=== PATIENT | female | born 1995 | race Two or more races ===

== ENCOUNTER 2016-09-19 20:05 | Emergency (ER) | payer MEDICAID ==
[~2016-09-19] VITALS: Ht 165.1 cm; Wt 68.3 kg
[2016-09-19 20:07] VITALS: BP 118/74
[2016-09-19] MEDS ORDERED: ONDANSETRON ODT 4 MG ONE (20:44)
[2016-09-19] MEDS ORDERED: MAALOX/HYOSCYAMINE/LIDOCAINE 45 ML BOTTLE ONE (20:44)
[2016-09-19] MEDS ORDERED: ONDANSETRON ODT 4 MG PO ONE (21:00)
[2016-09-19] MEDS ORDERED: MAALOX/HYOSCYAMINE/LIDOCAINE 45 ML BOTTLE PO ONE (21:00)
[2016-09-19 21:04] LABS: ASPARTATE AMINO TRANSFERASE 5 U/L (15-37); BLOOD UREA NITROGEN 6 mg/dL (7-18)
== END 2016-09-19 22:18 | disposition home or self-care (01) ==
LOC: ED 20:26
DX: O99.611 Diseases of the digestive system complicating pregnancy, first trimester (principal); K29.00 Acute gastritis without bleeding; R10.13 Epigastric pain; Z3A.01 Less than 8 weeks gestation of pregnancy
CPT/HCPCS: 36415; 76801; 80053; 81003; 83690; 84702; 85025; 86677; 99285; Q0162

== ENCOUNTER 2016-10-25 11:17 | Emergency (ER) | payer MEDICAID ==
[~2016-10-25] VITALS: Ht 167.6 cm; Wt 66.3 kg
[2016-10-25] MEDS ORDERED: PREN1COM15 PO (12:41)
[2016-10-25] MEDS ORDERED: MAALOX/HYOSCYAMINE/LIDOCAINE 45 ML BOTTLE ONE (12:43)
[2016-10-25] MEDS ORDERED: FAMOTIDINE 20 MG TABLET ONE (12:45)
[2016-10-25] MEDS ORDERED: FAMOTIDINE 20 MG TABLET PO ONE (13:00)
[2016-10-25] MEDS ORDERED: MAALOX/HYOSCYAMINE/LIDOCAINE 45 ML BOTTLE PO ONE (13:00)
[2016-10-25 13:11] LABS: BLOOD UREA NITROGEN 7 mg/dL (7-18)
[2016-10-25 13:16] LABS: ASPARTATE AMINO TRANSFERASE < 3 U/L (15-37)
[2016-10-25 13:41] VITALS: BP 108/69
== END 2016-10-25 14:34 | disposition home or self-care (01) ==
LOC: ED 14:03
DX: O26.891 Other specified pregnancy related conditions, first trimester (principal); K29.00 Acute gastritis without bleeding; Z3A.12 12 weeks gestation of pregnancy
CPT/HCPCS: 36415; 76700; 80053; 83690; 85025; 99285

== ENCOUNTER 2016-10-30 07:50 | Emergency (ER) | payer MEDICAID ==
[~2016-10-30] VITALS: Ht 167.6 cm; Wt 65.4 kg
[~2016-10-30 07:50] MED LIST: PREN1COM15 PO
[2016-10-30 09:55] LABS: BLOOD UREA NITROGEN 9 mg/dL (7-18)
[2016-10-30 11:11] VITALS: BP 104/64
== END 2016-10-30 11:32 | disposition home or self-care (01) ==
LOC: ED 11:15
DX: O20.0 Threatened abortion (principal); Z3A.12 12 weeks gestation of pregnancy
CPT/HCPCS: 36415; 76801; 80048; 82040; 84702; 85025; 86901; 99285

== ENCOUNTER 2016-11-19 16:25 | Emergency (ER) | payer MEDICAID ==
[~2016-11-19] VITALS: Ht 167.6 cm; Wt 66.2 kg
[2016-11-19 17:28] LABS: ASPARTATE AMINO TRANSFERASE 12 U/L (15-37); BLOOD UREA NITROGEN 8 mg/dL (7-18)
[2016-11-19 18:58] VITALS: BP 127/82
== END 2016-11-19 19:00 | disposition home or self-care (01) ==
LOC: ED 17:12
DX: R10.30 Lower abdominal pain, unspecified (principal); Z3A.16 16 weeks gestation of pregnancy; O26.892 Other specified pregnancy related conditions, second trimester
CPT/HCPCS: 36415; 76805; 80053; 81001; 85025; 86901; 99285

== ENCOUNTER 2016-12-09 19:51 | Emergency (ER) | payer MEDICAID ==
[~2016-12-09] VITALS: Ht 167.6 cm; Wt 67.6 kg
[2016-12-09 20:02] VITALS: BP 101/62
== END 2016-12-09 22:18 | disposition home or self-care (01) ==
LOC: ED 22:01
DX: O20.0 Threatened abortion (principal)
CPT/HCPCS: 36415; 76805; 81003; 84702; 85025; 86901; 99285

== ENCOUNTER 2016-12-31 23:17 | Observation (INO) | payer MEDICAID ==
[~2016-12-31] VITALS: Ht 167.6 cm; Wt 70.0 kg
== END 2017-01-01 06:43 | disposition home or self-care (01) ==
LOC: LDOP 23:17 → LDIP 01-01 00:28
PROVIDERS: ADMIT Obstetrics & Gynecology Female Pelvic Medicine and Reconstructive Surgery; ATTEND Obstetrics & Gynecology Female Pelvic Medicine and Reconstructive Surgery
DX: O46.92 Antepartum hemorrhage, unspecified, second trimester (principal); Z3A.20 20 weeks gestation of pregnancy
CPT/HCPCS: 59025; 76805; 99211; G0378; G0463

== ENCOUNTER 2019-03-17 00:18 | Emergency (ER) | payer MEDICAID ==
[~2019-03-17] VITALS: Ht 167.6 cm; Wt 74.0 kg
--- NOTE | 2019-03-17 00:22 | NUR ---
pt in restroom when called for triage.
--- NOTE | 2019-03-17 00:45 | NUR ---
PT HERE FOR SPOTTING TODAY. VSS. PT IS 7 WEEKS . LAB AT BEDSIDE. CALL LIGHT IN REACH
--- NOTE | 2019-03-17 00:53 | NUR ---
PT TO US
--- NOTE | 2019-03-17 01:31 | NUR ---
UA SENT TO LAB. PT RESTING WITH NO NEEDS AT THIS TIME. CALL LIGHT IN REACH
[2019-03-17 01:34] LABS: MICROSCOPIC NOT IND
[2019-03-17 01:45] LABS: CULTURE INDICATED? NO
[2019-03-17 02:05] VITALS: BP 119/78
== END 2019-03-17 02:06 | disposition home or self-care (01) ==
LOC: ED 01:43
DX: O20.9 Hemorrhage in early pregnancy, unspecified (principal); O26.891 Other specified pregnancy related conditions, first trimester; R11.0 Nausea; Z3A.01 Less than 8 weeks gestation of pregnancy
CPT/HCPCS: 36415; 76801; 81003; 84702; 86901; 99284